=== PATIENT | male | born 1950 | race Caucasian/White ===

== ENCOUNTER → 2016-03-13 | Outpatient (CLI) | payer OTHER ==
[~2016-03-13] VITALS: Ht 177.8 cm; Wt 93.5 kg
[~2016-03-13] MED LIST: ALEVE220 MG PO; AMARYL2 MG PO; APAP500 PO; ASPIRIN325 PO; ATENOLOL 50MG T50 MG PO; B-100 COMPLEX1 EACH PO; CENTRUM SILVER1 EAC2 PO; COQ-10100 MG PO; COZAAR 50 MG TA50 M2 PO; FISH OIL 1,001000 M2 PO; FLEXERIL PO; GABAPENTIN 100100 MG PO; HYDROCODON-ACE1 EAC7 PO; HYDROCODONE-AP1 EAC6 PO; HYDROCODONE-APA1 TA1 PO; HYTRIN 2MG CAPSU2 M1 PO; LYRICA150 MG PO; METFORMIN HCL500 MG PO; MOBIC15 MG PO; NEURONTIN 300300 M1 PO; NEURONTIN600 MG PO; PRAVACHOL40 MG PO; TRAMADOL 50 MG50 MG PO
--- NOTE | ~2016-03-13 | HPC ---
[facility] [place] [address] PAIN MANAGEMENT CONSULTATION Name: ASHLEIGH BURDEN Room #: REG ROBI [facility]#: [id number] Admission: 03/13/16 Attend Phys: Prabhjot Morley DO Discharge: Date of : 48 Report #: [id number] THIS REPORT FOR: //name// CC: Martin Morley The patient is a 65-year-old gentleman previously seen in the pain clinic 02/14/2016. The patient was diagnosed with symptomatic cervical radiculopathy status post decompressive laminectomy, symptoms were improved following 2 epidural injections. The patient has bilateral peripheral neuropathy secondary to diabetes. Last visit started patient on Lyrica with samples, titrated up to 150 mg at bedtime and is noting good efficacy with this. Again, he had 2 cervical epidural injections, December 29 and January 12 with good improvement of his radicular symptoms. He returns to pain clinic today noting he is seeing a chiropractor weekly for some shoulder soft tissue issues. Still has some pain in neck, right shoulder and trapezius. Diabetic peripheral neuropathy affecting feet with a burning dysesthesia remains problematic, I think this is helpful with the Lyrica. Prior trials of gabapentin has resulted in a cognitive dysfunction. Does have a little right lateral thigh radicular component of pain radiating down the top the foot. I think this is more lumbar radicular in etiology. He is status post lumbar decompressive laminectomy. Notes he has some pain in the left hip when sitting, has a "hitch" when he stands up. PHYSICAL EXAMINATION: Shows a 65-year-old gentleman, BMI is 29.6 kilograms per meter squared. Vital signs stable as noted in the EMR. Rises from chair with some subjective pain in the hip, although gait quickly normalizes. Lumbar flexion is good, has a little tenderness over the left hip, though no reproducible pain. Range of motion is good, peripheral neuropathy with dysesthesia in his feet. Cervical range of motion is actually fairly full. Upper extremity strength is generally symmetric, little tender in the right superior cervical musculature and trapezius on the right. ASSESSMENT: Symptomatic cervical radiculopathy, neuropathic pain component with bilateral lower extremity diabetic peripheral neuropathy, status post lumbar decompressive laminectomy. RECOMMENDATION: 1. Cervical radicular symptoms relatively quiescent are present. No further interventions required. 2. Continue Lyrica 150 mg at bedtime. I have taken the liberty of writing for a 150 mg tablet, 30 tablets with five refills. The patient has a coupon from the drug [employer] to help minimize his copay. Follow up as needed for change in symptoms. We can repeat cervical [place] [address] PAIN MANAGEMENT CONSULTATION Name: ASHLEIGH BURDEN Room #: REG ROBI Howard#: [id number] Admission: 03/13/16 Attend Phys: Prabhjot Morley DO Discharge: Date of : 48 Report #: [id number] indicated for radicular symptoms; however, presently I am happy to report that he does not warrant interventional therapy at this time. <ELECTRONICALLY SIGNED> By: Prabhjot Morley DO 03/15/16 0824 [id number] 2048 Prabhjot Morley DO /nt
[2016-03-13 10:42] VITALS: BP 118/60
== END | disposition home or self-care (01) ==
LOC: PAIN 07:23
DX: M54.12 Radiculopathy, cervical region (principal); E11.42 Type 2 diabetes mellitus with diabetic polyneuropathy; G89.29 Other chronic pain

== ENCOUNTER → 2018-03-11 | Outpatient (CLI) | payer OTHER ==
--- NOTE | 2018-03-12 17:51 | SLE ---
[facility] [place] [address] [place] [address] POLYSOMNOGRAPHY STUDY Name: ASHLEIGH BURDEN Ivonne Room #: REG [facility]#: [id number] Admission: 03/11/18 Attend Phys: Mason Loomis MD Discharge: Date of : 48 Report #: [id number] THIS REPORT FOR: //name// CC: Mason Jin DATE OF SERVICE: 03/11/2018 ATTENDING PHYSICIAN: Dr. Kleber Patel. The patient is a 67-year-old who weighs 200 pounds with a BMI of 28.7. The patient has moderate subjective hypersomnia with an Winslow score of 14. The patient has history of sleep apnea for which the patient has been prescribed CPAP, but has been intolerant to higher CPAP pressures due to chronic sinus issues. The patient is on auto CPAP. The patient was referred for BiPAP titration study. During the night study, the patient spent 430 minutes in bed and slept for 363 minutes with a sleep efficiency of 84%. Sleep latency was 12.9 minutes with a REM latency of 60.9 minutes. Overall sleep architecture showed normal stage 1 sleep with increased stage 2 sleep, normal slow wave and normal REM sleep. EKG monitoring revealed normal sinus rhythm, average heart rate of 45 beats per minute with a maximum of 54 beats per minute. PLMS were seen at an index of 19 per hour and only 1.8 per hour caused EEG arousals. The patient was started on BiPAP at a pressure of 8/4 and titrated up to 10/6. At that pressure, the patient slept for 350 minutes. The patient had 63 minutes of REM sleep. The patient had supine sleep as well. The patient's AHI was reduced to 0.2 per hour and oxygen saturation remained above 92%. IMPRESSION: 1. Sleep apnea diagnosed by previous sleep study. 2. Mild periodic limb movements of sleep without any significant electroencephalogram arousals. RECOMMENDATIONS: 1. BiPAP at 10/6 completely eliminated the patient's sleep apnea and should be used on a nightly basis. 2. Follow up in 4-6 weeks to assess compliance with BiPAP and to document clinical improvement. 3. Weight loss is advised. 4. Avoid SHANK TURNER depressants. [facility] [address] [place] [address] POLYSOMNOGRAPHY STUDY Name: BURDENASHLEIGH Room #: REG [facility].#: [id number] Admission: 03/11/18 Attend Phys: Mason Loomis MD Discharge: Date of : 48 Report #: [id number] 5. Cautioned regarding driving until symptoms of sleep apnea have resolved with the use of BiPAP. <ELECTRONICALLY SIGNED> By: Mason Loomis MD 03/12/18 1751 [id number] 1313 Mason Loomis MD /nt
== END ==
LOC: SLEEPLAB 10:43
DX: G47.30 Sleep apnea, unspecified (principal); G47.61 Periodic limb movement disorder

== ENCOUNTER → 2019-05-09 | Outpatient (CLI) | payer OTHER | LOC: SJCVCIMAG 11:34 | DX: I08.8 Other rheumatic multiple valve diseases (principal); R00.1 Bradycardia, unspecified; E11.9 Type 2 diabetes mellitus without complications; E78.5 Hyperlipidemia, unspecified; I10 Essential (primary) hypertension; I71.2 Thoracic aortic aneurysm, without rupture; I35.0 Nonrheumatic aortic (valve) stenosis; M47.812 Spondylosis without myelopathy or radiculopathy, cervical region; M50.20 Other cervical disc displacement, unspecified cervical region; G47.33 Obstructive sleep apnea (adult) (pediatric); J34.9 Unspecified disorder of nose and nasal sinuses ==

== ENCOUNTER → 2020-03-04 | Outpatient (CLI) | payer OTHER | LOC: SJCVCIMAG 08:09 | PROVIDERS: ATTEND Internal Medicine Cardiovascular Disease | DX: I08.0 Rheumatic disorders of both mitral and aortic valves (principal); I65.23 Occlusion and stenosis of bilateral carotid arteries; R94.31 Abnormal electrocardiogram [ECG] [EKG]; I71.2 Thoracic aortic aneurysm, without rupture; I10 Essential (primary) hypertension; E78.00 Pure hypercholesterolemia, unspecified; G47.33 Obstructive sleep apnea (adult) (pediatric); E11.9 Type 2 diabetes mellitus without complications; M19.90 Unspecified osteoarthritis, unspecified site; G43.909 Migraine, unspecified, not intractable, without status migrainosus; Z79.4 Long term (current) use of insulin; Z79.82 Long term (current) use of aspirin; Z79.899 Other long term (current) drug therapy ==

== ENCOUNTER → 2020-03-31 | Outpatient (CLI) | payer OTHER | LOC: ULTRA 08:55 | PROVIDERS: ATTEND Neuromusculoskeletal Medicine & OMM | DX: K76.0 Fatty (change of) liver, not elsewhere classified (principal) ==

== ENCOUNTER → 2020-10-20 | Outpatient (CLI) | payer OTHER | LOC: NUC 09:30 | PROVIDERS: ATTEND Neuromusculoskeletal Medicine & OMM | DX: R10.9 Unspecified abdominal pain (principal); R14.0 Abdominal distension (gaseous); K91.1 Postgastric surgery syndromes ==

== ENCOUNTER → 2020-12-14 | Outpatient (CLI) | payer OTHER | LOC: CAT 11:15 | PROVIDERS: ATTEND Internal Medicine Cardiovascular Disease | DX: Z13.6 Encounter for screening for cardiovascular disorders (principal); I25.10 Atherosclerotic heart disease of native coronary artery without angina pectoris; E78.00 Pure hypercholesterolemia, unspecified ==

== ENCOUNTER → 2020-12-14 | Outpatient (CLI) | payer OTHER | LOC: SJCVC 10:15 | PROVIDERS: ATTEND Internal Medicine Cardiovascular Disease | DX: R94.31 Abnormal electrocardiogram [ECG] [EKG] (principal); I10 Essential (primary) hypertension; E78.00 Pure hypercholesterolemia, unspecified; I35.0 Nonrheumatic aortic (valve) stenosis; I71.2 Thoracic aortic aneurysm, without rupture; E11.9 Type 2 diabetes mellitus without complications; E78.5 Hyperlipidemia, unspecified; G47.33 Obstructive sleep apnea (adult) (pediatric); Z79.4 Long term (current) use of insulin; Z79.82 Long term (current) use of aspirin; Z72.89 Other problems related to lifestyle; Z79.899 Other long term (current) drug therapy; Z82.49 Family history of ischemic heart disease and other diseases of the circulatory system ==

== ENCOUNTER → 2021-01-26 | Outpatient (CLI) | payer OTHER | LOC: SJCVCIMAG 07:51 | PROVIDERS: ATTEND Internal Medicine Cardiovascular Disease | DX: I35.0 Nonrheumatic aortic (valve) stenosis (principal); I35.1 Nonrheumatic aortic (valve) insufficiency; I49.9 Cardiac arrhythmia, unspecified; E11.9 Type 2 diabetes mellitus without complications; G47.33 Obstructive sleep apnea (adult) (pediatric); L98.8 Other specified disorders of the skin and subcutaneous tissue; I10 Essential (primary) hypertension; I71.4 Abdominal aortic aneurysm, without rupture; G62.9 Polyneuropathy, unspecified; E78.5 Hyperlipidemia, unspecified; E78.00 Pure hypercholesterolemia, unspecified; Z79.4 Long term (current) use of insulin; Z79.82 Long term (current) use of aspirin; Z79.899 Other long term (current) drug therapy; Z72.89 Other problems related to lifestyle ==